=== PATIENT | male | born 1950 | race Caucasian/White ===

== ENCOUNTER → 2022-01-23 | Outpatient (CLI) | payer MEDICARE, SELFPAY ==
--- NOTE | 2022-01-23 16:10 | RAD_ITS ---
STUDY: X-RAY CHEST REASON FOR EXAM: Male, 71 years old. ASTHMA TECHNIQUE: PA or AP and lateral COMPARISON: None. FINDINGS: The lungs are clear and expanded. There is no demonstrated pleural abnormality. Normal size heart. Normal mediastinum and vance. Normal visualized pulmonary arteries. Atherosclerotic vascular calcification of aortic arch. Descending aorta normal in appearance. Mild degenerative changes mid and lower thoracic spine. T12 mild wedge deformity age indeterminate. Normal visualized ribs, clavicles, and shoulders. There is no demonstrated abnormality of the visualized soft tissue structures of the upper abdomen. RAD/Chest PA and Lateral IMPRESSION: Lungs clear. Atherosclerotic vascular calcification of aortic arch. Degenerative changes of the mid and lower thoracic spine. Mild wedge deformity T12 age-indeterminate. Electronically Signed: Orlin Zurita MD, ADRIAN at 17:41 EDT ,
== END | disposition home or self-care (01) ==
LOC: MTRAD 16:05
PROVIDERS: PCP Physician Assistant; Referring Provider Internal Medicine Pulmonary Disease; Visit Provider Internal Medicine Pulmonary Disease
DX: J45.40 Moderate persistent asthma, uncomplicated (principal)
CPT/HCPCS: 71046

== ENCOUNTER 2022-06-26 07:37 | Outpatient (RCR) | payer MEDICARE, SELFPAY ==
[2022-06-26 08:06] VITALS: BP 123/73; PULSE 56; RESP 16; TEMP 36.5; BMI 23.8
--- NOTE | 2022-06-26 13:37 | PCM.WC.HP ---
History of Present Illness Date of Service: 06/26/22 Chief Complaint: Surgical wound dehiscence, left leg History of Wound: This is a 72-year-old male with multiple pre-existing medical problems. On February 05, 2022, the patient underwent a quadruple coronary artery bypass at [facility]. He has recovered uneventfully from a cardiac standpoint, but developed a surgical wound dehiscence from a vein harvest incision site on his left medial calf. He presents at this time for evaluation and management. Incidentally, approximately 3 months ago, the patient was diagnosed with acute superficial thrombophlebitis in his right lower extremity. At that time, he was placed on Eliquis, which continues until the current time. His anticoagulation management is overseen by his primary care physician's office, Chantel Shepherd, a nurse practitioner. Available records reveal a venous duplex examination performed subsequently on June 22, 2022, which reveals echogenic thrombus in the left great saphenous vein which extends 1.1 cm from the saphenofemoral junction. There is no evidence of deep vein thrombosis. Patient smokes approximately 4 cigars/week. His other medical problems include, but are not limited to hypertension, COPD, asthma, tobacco abuse, hyperlipidemia, cardiac arrhythmia, and gastroesophageal reflux disease. FOR[facility]LY [facility] Medical History Asthma Atrial fibrillation Cardiac arrhythmia Chronic anticoagulation COPD with asthma Coronary artery disease GERD (gastroesophageal reflux disease) Hyperlipidemia Hypertension Postoperative anemia Superficial thrombophlebitis of left leg Surgical wound dehiscence Tobacco abuse Tobacco abuse counseling Urethral stricture Allergy/AdvReac Type Severity Reaction Status Date / Time Penicillins Allergy PT UNSURE Verified 06/26/22 08:29 OF REACTION Surgical History History of tonsillectomy Status post coronary artery bypass graft Status post hip surgery Status post lumbar discectomy Status post right inguinal hernia repair Social History Smoking Status: Current some day smoker Vital Signs Vital Signs Vital Signs: 06/26/22 08:06 Temperature 97.7 F L Temperature Source Temporal Pulse Rate 56 L Respiratory Rate 16 Blood Pressure 123/73 H Blood Pressure Mean 89 Blood Pressure Source Monitor Blood Pressure Position Sitting Blood Pressure Location Right Arm Oxygen Delivery Method Room Air Weight Weight: 161 lb Body Mass Index (BMI) 23.8 Physical Exam Const alert, oriented x3, no apparent distress, average body habitus and well nourished Constitutional Narrative: Poor dentition is noted. General Appearance: cooperative, comfortable, well developed and disheveled Orientation / Consciousness: awake, oriented to person, oriented to place and oriented to time Exam Limitations: no limitations HEENT normocephalic, head/scalp atraumatic and hearing grossly normal bilaterally Head and Scalp: normal to inspection, normocephalic and atraumatic External Ear: external ears normal Teeth and Gingiva: poor dentition Eyes PERRL and EOMs intact bilaterally General Eye: normal appearance of both eyes Resp normal respiratory effort, normal air movement, no retractions and no use of accessory muscles Effort and Inspection: able to speak in complete sentences Extremity no calf tenderness General Extremity: Negative for clubbing or cyanosis Skin Wound Narrative: The patient presented with concerns regarding a left medial calf vein harvest incision. It was thought to be dehisced. In fact, it may have been dehiscent in the days and weeks past. However, upon examination today, the incision is well approximated and appropriately healed. There is a very slight depression within the linear incision, which does not appear to be a breach in epithelial integrity. There is no sign of infection or cellulitis. There is no open wound or ulceration. No drainage is noted. No significant lower extremity swelling is appreciated. Neuro oriented x3, CN's II-XII intact bilaterally, moves all extremities and no focal motor deficits Sensorium / Orientation: awake, alert, oriented to person, oriented to place and oriented to time Psych Appearance: grossly normal and appropriate Attitude: calm Activity / Motor Behavior: appropriate eye contact Speech: normal speech Mood & Affect: euthymic mood Thought Process: normal thought process Thought Content: normal thought content Attention / Concentration: attention grossly intact Debridement Note Debridement Note No debridement was completed: No debridement was completed today (There are no open wounds or ulcerations.) Post-Debridement Measurements and Additional Note: Post-Debridement Measurements/Treatment MARQUITA - Nurse 1 - General Ulcer Assessment Start: 06/26/22 08:02 Freq: Status: Active Protocol: LINO Activity Type Activity Date Activity User E-sign Co-sign Detail Recorded Client Recorded Date Recorded By Document 06/26/22 08:06 MW [id number] 06/26/22 08:27 06/26/22 08:06 WC - Today's Visit Information Type of service Initial Visit Arrival Mode Ambulatory Transfer Assistance None Accompanied by self Patient Identification Verified (Name & Yes ) Patient Requires Transmission-Based No Precautions Safety Precautions NA Height and Weight Height 5 ft 9 in Weight 161 lb Weight in Pounds 161.0 lbs Weight Measurement Method Stated by Patient Body Mass Index (BMI) 23.8 BMI Classification Normal BSA - Mary Ellen 1.88 Vital Signs Temperature (97.8 F-99.1 F) 97.7 F L Temperature Source Temporal Pulse Rate (60-100) 56 L Pulse Location Monitor Respiratory Rate (12-18) 16 Respiratory rate source Observation Oxygen Delivery Method Room Air Blood Pressure (90/60-120/80) 123/73 H Blood Pressure Mean 89 Source Monitor Position Sitting Blood Pressure Location Right Arm History Since Last Visit- (Skip if this is Patient's initial visit) Had a fall/change in ADL's that may No increase risk of falls Pain Scale: 0-10 Numeric Is Patient Pain Free? Yes Lower Extremity Assessment/ Foot Assessment/ Toe Nail Assessment Right -Posterior Tibial Palpable Yes -Posterior Tibial Doppler Monophasic -Dorsalis Pedis Palpable Yes -Dorsalis Pedis Doppler Monophasic -Hair Growth on Legs No -Hair Growth on Toes No -Temperature of Extremity Warm -Capillary Refill Less than 3 Seconds -Dependent Rubor No -Lipodermatosclerosis No -Other Deformity No -Prior Foot Ulcer No -Charcot Joint No -Prior Amputation No -Thick No -Discolored No -Deformed No -Improper Length & Hygeine No Left -Posterior Tibial Palpable No -Posterior Tibial Doppler Monophasic -Dorsalis Pedis Palpable No -Dorsalis Pedis Doppler Inaudible -Extremity Color Normal -Temperature of Extremity Warm -Capillary Refill Less than 3 Seconds -Dependent Rubor No -Lipodermatosclerosis No -Other Deformity No -Prior Foot Ulcer No -Charcot Joint No -Prior Amputation No -Thick No -Discolored No -Deformed No -Improper Length & Hygeine No Neuropathy Assessment Feet - Top Side and Bottom <Entered> (a) Communication Assessment Preferred language Sudanese Display Department Manager Required No Able to Read Yes Able to Write Yes Communication Tools None Caregiver Communication Skills No Impairment Impairment Right Hearing Abillity Normal Left Hearing Abillity Normal Visual Assistive Devices Glasses Teaching Assessment Preferences Verbal,Written, Audio/Visual, Demonstration Barriers to Learning None Readiness To Learn Excellent Willingness to Engage in Self Management High Activies Readiness to Engage in Self Management High Activities Anxiety Level Calm Cooperation Cooperative Perception Coherent Interest in Health Problem Asks Questions Education Importance Acknowledges Need Does Patient Smoke tobacco or other Yes substances Smoking Status Current some day smoker Is Patient Diabetic No Functional Assessment Recent Decline in Ability to Perform Denies Any Declines Assistive Device With Patient No 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 Cultural/Caodaism Needs that may affect No Treatment Plan Electric Tool Repairer to contact place of jain No (a) 1 - + WC - Nurse 1 - General Ulcer Measurement Start: 06/26/22 08:02 Freq: Status: Active Protocol: Activity Type Activity Date Activity User E-sign Co-sign Detail Recorded Client Recorded Date Recorded By Document 06/26/22 08:06 MW [id number] 06/26/22 08:27 MW 06/26/22 08:06 Wound Center Nurse 1 Lower Limb Edema Present No Right Calf (cm) 32.0 Right Ankle (cm) 20.5 Left Calf (cm) 31.5 Left Ankle (cm) 20.5 WC - Nurse 3 - General Ulcer D/C NN Start: 06/26/22 08:02 Freq: Status: Active Protocol: Activity Type Activity Date Activity User E-sign Co-sign Detail Recorded Client Recorded Date Recorded By Document 06/26/22 11:45 PL [id number] 06/26/22 11:46 PL 06/26/22 11:45 Teaching: Wound Center Discharge Instructions -Person Taught Patient -Teaching Method Discussion -Response to teaching Verbalize understanding Pain Scale: 0-10 Numeric Is Patient Pain Free? Yes WC - Visit Discharge Discharge Condition Stable Ambulatory Status Ambulatory Transportation Private Auto Assessment/Plan Assessment/Plan (1) Surgical wound dehiscence: CODE(S): T81.31XA - Disruption of external operation (surgical) wound, not elsewhere classified, initial encounter (2) Status post coronary artery bypass graft: CODE(S): Z95.1 - Presence of aortocoronary bypass graft (3) Superficial thrombophlebitis of left leg: CODE(S): I80.02 - Phlebitis and thrombophlebitis of superficial vessels of left lower extremity (4) Coronary artery disease: CODE(S): I25.10 - Atherosclerotic heart disease of [place] coronary artery without angina pectoris (5) Hypertension: CODE(S): I10 - Essential (primary) hypertension (6) COPD with asthma: CODE(S): J44.9 - Chronic obstructive pulmonary disease, unspecified (7) Tobacco abuse: CODE(S): Z72.0 - Tobacco use (8) Tobacco abuse counseling: CODE(S): Z71.6 - Tobacco abuse counseling (9) Urethral stricture: CODE(S): N35.919 - Unspecified urethral stricture, male, unspecified site (10) Atrial fibrillation: CODE(S): I48.91 - Unspecified atrial fibrillation (11) Hyperlipidemia: CODE(S): E78.5 - Hyperlipidemia, unspecified (12) Cardiac arrhythmia: CODE(S): I49.9 - Cardiac arrhythmia, unspecified (13) Postoperative anemia: CODE(S): D64.9 - Anemia, unspecified (14) Asthma: CODE(S): J45.909 - Unspecified asthma, uncomplicated (15) GERD (gastroesophageal reflux disease): CODE(S): K21.9 - Gastro-esophageal reflux disease without esophagitis (16) History of tonsillectomy: CODE(S): Z90.89 - Acquired absence of other organs (17) Status post hip surgery: CODE(S): Z98.890 - Other specified postprocedural states (18) Status post right inguinal hernia repair: CODE(S): Z98.890 - Other specified postprocedural states; Z87.19 - Personal history of other diseases of the digestive system (19) Status post lumbar discectomy: CODE(S): Z98.890 - Other specified postprocedural states (20) Chronic anticoagulation: CODE(S): Z79.01 - snf (current) use of anticoagulants PLAN: Plan It appears as though the left lower extremity vein harvest incision, which may have been dehiscent in the days and weeks prior to his presentation, is now completely healed and epithelialized. There are noted to be no open wounds or ulcerations. There is no sign of infection or cellulitis. There is no drainage from the site. Patient has been encouraged and counseled to discontinue his smoking habit. He is to continue to observe the healed incision on the left medial calf, and to contact our facility if he notices any significant change of appearance to suggest dehiscence, infection, or other incisional problems. He is to avoid trauma to the area. Is to follow-up henceforth with his primary care physician and Chantel Shepherd nurse practitioner, with regard to his anticoagulation management with respect to the superficial thrombophlebitis noted in the left great saphenous vein on a recent venous duplex examination. Patient is to be discharged from our facility, and will follow-up henceforth on an as-needed basis. Total time: 48 minutes
== END 2022-07-13 23:59 | disposition home or self-care (01) ==
LOC: WC 07:37
PROVIDERS: PCP Physician Assistant; Referring Provider Surgery; Visit Provider Surgery
DX: T81.31XA Disruption of external operation (surgical) wound, not elsewhere classified, initial encounter (principal); J44.9 Chronic obstructive pulmonary disease, unspecified; I48.91 Unspecified atrial fibrillation; N35.919 Unspecified urethral stricture, male, unspecified site; G62.9 Polyneuropathy, unspecified; I82.812 Embolism and thrombosis of superficial veins of left lower extremity; Z95.1 Presence of aortocoronary bypass graft; I10 Essential (primary) hypertension; D64.9 Anemia, unspecified; Z71.6 Tobacco abuse counseling; Z72.0 Tobacco use; I25.10 Atherosclerotic heart disease of native coronary artery without angina pectoris; E78.5 Hyperlipidemia, unspecified; K21.9 Gastro-esophageal reflux disease without esophagitis; Z79.01 Long term (current) use of anticoagulants; Z90.89 Acquired absence of other organs; Z87.19 Personal history of other diseases of the digestive system
CPT/HCPCS: 99213; G0463

== ENCOUNTER → 2024-10-26 | Outpatient (CLI) | payer MEDICARE, SELFPAY ==
[2024-10-26 11:19] LABS: PSA,Total- Diagnostic 10.10 ng/mL (0.00-4.00)
== END | disposition home or self-care (01) ==
LOC: LAB 09:55
PROVIDERS: PCP Physician Assistant; Referring Provider Urology; Visit Provider Urology
DX: R97.20 Elevated prostate specific antigen [PSA] (principal)
CPT/HCPCS: 36415; 84153